=== PATIENT | female | born 1990 | race African-American/Black ===

== ENCOUNTER 2018-09-20 03:42 | Inpatient (IN) | payer MEDICAID, MEDICARE ==
[~2018-09-20] VITALS: Ht 162.6 cm; Wt 54.4 kg
[2018-09-20] MEDS ORDERED: CITRIC ACID/SODIUM CITRATE SOLN 30ML UDC PO NR (04:45)
[2018-09-20] MEDS ORDERED: ACETAMINOPHEN 500MG TABLET PO NR (04:45)
[2018-09-20 05:05] LABS: CLARITY URINE CLEAR (CLEAR); COLOR URINE YELLOW (YELLOW); KETONES URINE TRACE (NEGATIVE); LEUKOCYTE ESTERASE URINE NEGATIVE (NEGATIVE); NITRITE URINE NEGATIVE (NEGATIVE); OCCULT BLOOD URINE NEGATIVE (NEGATIVE); PH URINE 5.5 (4.5-8.0); PROTEIN URINE TRACE (NEGATIVE); SPECIFIC GRAVITY URINE 1.038 (1.005-1.030)
[2018-09-20] MEDS ORDERED: LACTATED RINGERS 1,000 ML IV SCH (06:52)
[2018-09-20] MEDS ORDERED: BETAMETHASONE ACET/BETAMET 30 MG/5 ML VIAL IM ONE (07:00)
[2018-09-20] MEDS ORDERED: AMPICILLIN 2,000 MG in SODIUM CHLORIDE 0.9% 100 ML IV SCH (07:00)
[2018-09-20] MEDS: LACTATED RINGERS 1,000 ML IV SCH ×2 (07:53→12:38)
[2018-09-20] MEDS: AZITHROMYCIN 500 MG in DEXT 5% WATER 250 ML IV SCH (08:37)
[2018-09-20 08:43] LABS: *COCAINE SCREEN URINE NEGATIVE (NEGATIVE)
[2018-09-20 08:44] LABS: *AMPHETAMINES SCREEN URINE NEGATIVE (NEGATIVE); *BENZODIAZEPINES SCREEN URINE NEGATIVE (NEGATIVE); CANNABINOID URINE SCREEN NEGATIVE (NEGATIVE); METHADONE URINE SCREEN NEGATIVE (NEGATIVE); OPIATES URINE SCREEN NEGATIVE (NEGATIVE); PHENCYCLIDINE URINE SCREEN NEGATIVE (NEGATIVE)
[2018-09-20 08:45] LABS: *BARBITURATES SCREEN URINE NEGATIVE (NEGATIVE)
[2018-09-20] MEDS: MAGNESIUM 20 G PREMIX (L & D) 500 ML IV SCH ×2 (09:13→18:01)
[2018-09-20 10:49] LABS: BASOPHILS % 0.3 % (0.0-2.0); EOSINOPHILS % 0.8 % (0.0-5.0); LYMPHOCYTES % 22.1 % (20.0-50.0); MEAN CORPUSCULAR HEMOGLOBIN 25.4 pg (28.0-32.0); MEAN CORPUSCULAR VOLUME 78.7 fL (81.0-99.0); MEAN PLATELET VOLUME 10.2 fl (7.4-10.4); MONOCYTES % 4.4 % (2.0-8.0); NEUTROPHILS % 72.4 % (40.0-76.0); PLATELET 194 x1000/uL (130-400); RED BLOOD CELL COUNT 3.95 mill/uL (4.2-5.4); RED CELL DISTRIBUTION WIDTH 13.3 % (11.6-14.6)
[2018-09-20 10:56] LABS: INR 0.9; PARTIAL THROMBOPLASTIN TIME 25.2 sec (23.4-31.0); PROTHROMBIN TIME 9.3 sec (9.1-11.1)
[2018-09-20 10:58] LABS: CHLORIDE 106 mEq/L (98-107)
[2018-09-20 12:00] LABS: HEPATITIS B SURFACE ANTIGEN NEGATIVE
[2018-09-20] MEDS: AMPICILLIN 1,000 MG in SODIUM CHLORIDE 0.9% 50 ML IV SCH ×2 (12:37→18:26)
[2018-09-21] MEDS: AMPICILLIN 1,000 MG in SODIUM CHLORIDE 0.9% 50 ML IV SCH ×3 (00:04→12:51)
[2018-09-21] MEDS: LACTATED RINGERS 1,000 ML IV SCH ×3 (00:28→14:09)
[2018-09-21] MEDS: MAGNESIUM 20 G PREMIX (L & D) 500 ML IV SCH ×2 (00:58→04:46)
[2018-09-21 04:46] VITALS: BP 107/58
[2018-09-21] MEDS ORDERED: BETAMETHASONE ACET/BETAMET 30 MG/5 ML VIAL IM ONE (07:30)
[2018-09-21] MEDS: AZITHROMYCIN 500 MG in DEXT 5% WATER 250 ML IV SCH (09:24)
[2018-09-21] MEDS ORDERED: KCL 20MEQ/100ML PREMIX 100 ML IV NR (10:00)
[2018-09-21] MEDS ORDERED: POTASSIUM CHLORIDE 20MEQ TABLET SR PO NR (22:30)
[2018-09-22] MEDS: AMPICILLIN 1,000 MG in SODIUM CHLORIDE 0.9% 50 ML IV SCH ×4 (00:11→18:35)
[2018-09-22] MEDS: AZITHROMYCIN 500 MG in DEXT 5% WATER 250 ML IV SCH (08:57)
[2018-09-22] MEDS: LACTATED RINGERS 1,000 ML IV SCH (15:55)
[2018-09-22] MEDS: ACETAMINOPHEN 500MG TABLET PO PRN (17:04)
[2018-09-23] MEDS: AMPICILLIN 1,000 MG in SODIUM CHLORIDE 0.9% 50 ML IV SCH ×3 (00:13→12:02)
[2018-09-23] MEDS: LACTATED RINGERS 1,000 ML IV SCH ×2 (01:28→12:02)
[2018-09-23] MEDS: ACETAMINOPHEN 500MG TABLET PO PRN (08:05)
[2018-09-23] MEDS: AZITHROMYCIN 500 MG in DEXT 5% WATER 250 ML IV SCH (09:53)
[2018-09-23] MEDS: AMOXICILLIN 250MG CAPSULE PO SCH (17:56)
[2018-09-24] MEDS: AMOXICILLIN 250MG CAPSULE PO SCH ×3 (06:10→12:52)
[2018-09-24] MEDS ORDERED: AZITHROMYCIN 500 MG TABLET PO SCH (09:00)
== END 2018-09-24 19:00 | disposition home or self-care (01) | DRG 566 ==
LOC: OBSVTOIN 03:42 → 8 EST LDRP 03:42 → 8 EST A/PP 12:18 → 8 EST LDRP 09-21 09:19
PROVIDERS: ADMIT Obstetrics & Gynecology; ATTEND Obstetrics & Gynecology
DX: O99.013 Anemia complicating pregnancy, third trimester (principal); O60.03 Preterm labor without delivery, third trimester; O99.283 Endocrine, nutritional and metabolic diseases complicating pregnancy, third trimester; D64.9 Anemia, unspecified; E87.6 Hypokalemia; Z3A.34 34 weeks gestation of pregnancy
CPT/HCPCS: 36415; 59412; 76805; 76815; 76818; 80305; 83735; 86592; 86703; 86762; 86850; 86900; 87070; 87340; 99281; G0378; J0290; J0456; J0702; J3475; J3480; J7050; J7060; J7120; A4315

== ENCOUNTER 2018-10-10 15:06 | Inpatient (IN) | payer MEDICARE ==
[~2018-10-10] VITALS: Ht 162.6 cm; Wt 56.7 kg
[2018-10-10] MEDS ORDERED: DEXT 5%/LR + PITOCIN 20UNITS/L 1,000 ML IV SCH ×2 (15:24→17:35)
[2018-10-10] MEDS ORDERED: NALOXONE HCL 0.4 MG/ML 1ML VIAL IM PRN (15:30)
[2018-10-10] MEDS ORDERED: MISOPROSTOL 100MCG TABLET VG SCH (15:30)
[2018-10-10] MEDS ORDERED: METHYLERGONOVINE MALEATE 0.2 MG/ML IM PRN (15:30)
[2018-10-10] MEDS ORDERED: IBUPROFEN 400MG TABLET PO PRN ×2 (16:00→17:45)
[2018-10-10] MEDS ORDERED: ACETAMINOPHEN WITH CODEINE 300/30MG TABLET PO PRN ×2 (16:00→17:45)
[2018-10-10] MEDS ORDERED: LANOLIN OINT 0.25 GM TUBE TOP PRN (17:45)
[2018-10-10] MEDS ORDERED: DIPHENHYDRAMINE 25MG CAPSULE PO PRN (17:45)
[2018-10-10] MEDS ORDERED: TETANUS, DIPHTHERIA, PERTUSSIS VAC/PF 0.5ML (>7YR OLD) IM ONE (17:45)
[2018-10-10] MEDS ORDERED: HEMORRHOIDAL SUPP PR PRN (17:45)
[2018-10-10] MEDS ORDERED: IBUPROFEN 800MG TABLET PO PRN (17:45)
[2018-10-10] MEDS ORDERED: INFLUENZA VIRUS VACCINE(AFLURIA) 0.5ML SYR IM ONE (17:45)
[2018-10-10 17:50] LABS: CLARITY URINE CLEAR (CLEAR); COLOR URINE YELLOW (YELLOW); KETONES URINE TRACE (NEGATIVE); LEUKOCYTE ESTERASE URINE NEGATIVE (NEGATIVE); NITRITE URINE NEGATIVE (NEGATIVE); OCCULT BLOOD URINE 2+ (NEGATIVE); PROTEIN URINE 1+ (NEGATIVE); SPECIFIC GRAVITY URINE 1.034 (1.005-1.030)
[2018-10-10 17:58] LABS: BASOPHILS % 0.3 % (0.0-2.0); EOSINOPHILS % 0.2 % (0.0-5.0); HEMATOCRIT. 30.1 % (36.0-48.0); HEMOGLOBIN. 9.6 g/dL (12.0-16.0); LYMPHOCYTES % 17.7 % (20.0-50.0); MEAN CORPUSCULAR HEMOGLOBIN 24.7 pg (28.0-32.0); MEAN CORPUSCULAR VOLUME 77.5 fL (81.0-99.0); MEAN PLATELET VOLUME 10.6 fl (7.4-10.4); MONOCYTES % 6.1 % (2.0-8.0); NEUTROPHILS % 75.7 % (40.0-76.0); PLATELET 183 x1000/uL (130-400); RED BLOOD CELL COUNT 3.88 mill/uL (4.2-5.4); RED CELL DISTRIBUTION WIDTH 14.6 % (11.6-14.6)
[2018-10-10 18:00] VITALS: BP 116/70
[2018-10-10] MEDS ORDERED: GLYCERIN/WITCH HAZEL LEAF MEDICATED PAD TOP PRN (18:00)
[2018-10-10 18:06] LABS: PARTIAL THROMBOPLASTIN TIME 26.1 sec (23.4-31.0); PROTHROMBIN TIME 9.7 sec (9.1-11.1)
[2018-10-10 18:36] VITALS: BP 114/71
[2018-10-10 18:54] LABS: *AMPHETAMINES SCREEN URINE NEGATIVE (NEGATIVE); *BARBITURATES SCREEN URINE NEGATIVE (NEGATIVE); *BENZODIAZEPINES SCREEN URINE NEGATIVE (NEGATIVE); *COCAINE SCREEN URINE NEGATIVE (NEGATIVE); METHADONE URINE SCREEN NEGATIVE (NEGATIVE); OPIATES URINE SCREEN NEGATIVE (NEGATIVE); PHENCYCLIDINE URINE SCREEN NEGATIVE (NEGATIVE)
[2018-10-10 18:55] LABS: CANNABINOID URINE SCREEN NEGATIVE (NEGATIVE)
[2018-10-10 19:55] VITALS: BP 106/65
[2018-10-10 20:58] LABS: HEPATITIS B SURFACE ANTIGEN NEGATIVE
[2018-10-10] MEDS: DOCUSATE SODIUM 100MG CAPSULE PO SCH (21:00)
[2018-10-11] VITALS: BP 104/59
[2018-10-11] MEDS: PRENATAL VIT/FE FUMARATE/FA TABLET PO SCH (08:13)
[2018-10-11] MEDS: FERROUS SULFATE 325MG TABLET PO SCH ×3 (08:13→17:30)
[2018-10-11 09:05] VITALS: BP 101/53
[2018-10-11 09:32] LABS: BASOPHILS % 0.4 % (0.0-2.0); HEMATOCRIT. 28.7 % (36.0-48.0); HEMOGLOBIN. 9.2 g/dL (12.0-16.0); LYMPHOCYTES % 29.7 % (20.0-50.0); MEAN CORPUSCULAR HEMOGLOBIN 24.9 pg (28.0-32.0); MEAN CORPUSCULAR VOLUME 77.2 fL (81.0-99.0); MEAN PLATELET VOLUME 10.2 fl (7.4-10.4); MONOCYTES % 6.8 % (2.0-8.0); NEUTROPHILS % 62.1 % (40.0-76.0); PLATELET 182 x1000/uL (130-400); RED BLOOD CELL COUNT 3.71 mill/uL (4.2-5.4); RED CELL DISTRIBUTION WIDTH 14.6 % (11.6-14.6)
[2018-10-11 15:49] VITALS: BP 104/65
[2018-10-11 20:00] VITALS: BP 103/60
[2018-10-11] MEDS: DOCUSATE SODIUM 100MG CAPSULE PO SCH ×2 (21:00)
[2018-10-12 04:00] VITALS: BP 108/61
[2018-10-12] MEDS: FERROUS SULFATE 325MG TABLET PO SCH (07:30)
[2018-10-12 08:00] VITALS: BP 104/66
[2018-10-12] MEDS: PRENATAL VIT/FE FUMARATE/FA TABLET PO SCH (08:45)
== END 2018-10-12 12:00 | disposition home or self-care (01) | DRG 805 ==
LOC: 8 EST LDRP 15:06 → OBSVTOIN 15:06 → 8EST 18:02
PROVIDERS: ADMIT Specialist; ATTEND Specialist
PROC: 10E0XZZ Delivery of Products of Conception, External Approach (ICD-10-PCS; principal; 2018-10-10)
DX: O42.913 Preterm premature rupture of membranes, unspecified as to length of time between rupture and onset of labor, third trimester (principal); O60.03 Preterm labor without delivery, third trimester; Z37.0 Single live birth; D62 Acute posthemorrhagic anemia; O99.02 Anemia complicating childbirth; Z3A.36 36 weeks gestation of pregnancy
CPT/HCPCS: 36415; 80305; 86592; 86703; 86762; 86850; 86900; 87340; 99281; J2590